=== PATIENT | male | born 1985 | race African-American/Black ===

== ENCOUNTER 2016-09-17 13:37 | Emergency (ER) | payer OTHER ==
[2016-09-17 13:40] VITALS: BP 127/72; PULSE 70; RESP 18; TEMP 99.1; O2SAT 100
--- NOTE | 2016-09-17 14:16 | ED PDOC ---
HPI: Eye Injury/Pain Time Seen by Provider: 09/17/16 13:41 Chief Complaint (Nursing): Eye Problem Chief Complaint (Provider): chemical exposure to left eye History Per: Patient Additional Complaint(s): 31-year-old male with no past medical history presents to emergency department for evaluation status post chemical exposure to left eye. 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 He is not sure if the chemical actually splashed into his eye or just onto his face. Patient flushed his eyes out immediately. He did not seek any medical attention at time of injury yesterday and presents today for further evaluation. 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 Upon arrival patient denies any left eye pain, denies any vision changes or vision loss. He has slight headache but has history of chronic headaches. He rates current headache as 1/10. Patient denies any drainage from eye and states that right eye is unaffected. Past Medical History Reviewed: Historical Data, Nursing Documentation, Vital Signs Vital Signs: Last Vital Signs Temp 99.1 F 09/17/16 13:38 Pulse 70 09/17/16 13:38 Resp 18 09/17/16 13:38 BP 127/72 09/17/16 13:38 Pulse Ox 100 09/17/16 13:38 - Medical History PMH: No Chronic Diseases - Surgical History Surgical History: No Surg Hx - Family History Family History: States: No Known Family Hx - Living Arrangements Living Arrangements: With Family - Social History Current smoker - smoking cessation education provided: No Alcohol: None Drugs: Denies - Allergies Allergies/Adverse Reactions: Allergies Allergy/AdvReac Type Severity Reaction Status Date / Time No Known Allergies Allergy Verified 09/17/16 13:38 Review of Systems ROS Statement: Except As Marked, All Systems Reviewed And Found Negative Eyes: Positive for: Other (chemical exposure to left eye sustained yesterday). Negative for: Pain, Vision Change, Conjunctivae Inflammation, Eyelid Inflammation, Redness Gastrointestinal: Negative for: Nausea, Vomiting Neurological: Positive for: Headache (slight, rated as 1/10), Dizziness Physical Exam - Reviewed Nursing Documentation Reviewed: Yes Vital Signs Reviewed: Yes - Physical Exam Appears: Positive for: Well, Non-toxic, No Acute Distress Head Exam: Positive for: ATRAUMATIC, NORMAL INSPECTION Skin: Positive for: Normal Color. Negative for: Rash Eye Exam: Positive for: Normal appearance, EOMI, PERRL, Other (Normal gross examination of right and left eyes. Examination with tetracaine and fluorescein of left eye demonstrates no uptake). Negative for: Nystagmus, Periorbital swelling, Periorbital tenderness, Conjunctival injection, Scleral icterus Neurologic/Psych: Positive for: Alert, scientific artist II-XII (intact), Oriented, Gait. Negative for: Motor/Sensory Deficits, Aphasia, Facial Droop - ECG O2 Sat by Pulse Oximetry: 100 Pulse Ox Interpretation: Normal Medical Decision Making Medical Decision Making: Impression: normal eye exam s/p chemical exposure to eye yesterday Visual Acuity: Left 20/20 Right 20/20 Both 20/20 Patient denies any eye pain, he states he has headache that he rates as 1/10. Pain meds declined in ED. Patient was instructed to follow up with advertising manager for any persistent symptoms. Disposition - Clinical Impression Clinical Impression: Eye injury, Chemical exposure of eye - Patient ED Disposition Is Patient to be Admitted: No Counseled Patient/Family Regarding: Diagnosis, Need For Followup - Disposition Referrals: Harman Cook MD [Staff Provider] - Disposition: Routine/Home Disposition Time: 14:34 Condition: STABLE Additional Instructions: Tylenol for pain as needed. Follow-up with eye doctor for any persistent symptoms. Instructions: Chemical Eye [facility] (ED)
== END 2016-09-17 15:23 | disposition home or self-care (01) ==
LOC: H.ER 13:37
DX: Z77.098 Contact with and (suspected) exposure to other hazardous, chiefly nonmedicinal, chemicals (principal)